=== PATIENT | male | born 1945 | race Caucasian/White ===

== ENCOUNTER → 2016-10-24 | Day surgery (SDC) | payer MEDICARE, BC ==
[~2016-10-24] MED LIST: ASPIRIN EC81 M1 PO; ASPIRIN PO; B-COMPLEX-VITA1 EACH PO; DYAZIDE 37.5/251 CAP PO; FISH OIL 1,2001 EAC1 PO; GLIPIZIDE10 MG PO; GLYNASE PO; LANTUS SOL100 UNIT/1 SUBQ; LASIX20 MG PO; LOPRESSOR PO; METFORMIN PO; NIACIN PO; NOVOLOG100 UNITS/ SUBQ; PLAVIX PO; VASOTEC PO; VICTOZA SUBD; VITAMIN B-121000 MCG PO; ZOCOR PO; [UNRECOGNIZED DRUG - REMARK]
--- NOTE | ~2016-10-24 | OR ---
Unit #: [id number] #: [id number] Patient: ZAIN DUNCAN SR [id number] [address] [id number] O MR#: [id number] NAME: ZIAN DUNCAN SR ROOM: Date of Procedure: 10/24/2016 Admission Date: 10/24/2016 Surgeon: Maximus Mishra M.D. : 1945 Attending Physician: Maximus Mishra M.D. Referring Physician: Maximus Mishra M.D. Primary Care Physician: Lias Cole M.D. OPERATIVE REPORT PREOPERATIVE DIAGNOSIS Screening colonoscopy. POSTOPERATIVE DIAGNOSIS Screening colonoscopy. PROCEDURES PERFORMED 1. Colonoscopy to cecum. 2. Polypectomy of small cecal polyp with cold biopsy forceps. ANESTHESIA Monitored anesthesia care. FINDINGS The patient was found to have a small 3 to 4 mm polyp that was excised completely with the cold biopsy forceps in the cecum with good hemostasis. Normal colonoscopy to cecum otherwise except for mild internal hemorrhoids. SPECIMENS Sent to pathology. COMPLICATIONS None apparent. CONDITION The patient tolerated the procedure well. INDICATIONS FOR PROCEDURE The patient is a 71-year-old white male, who presents at this time for screening colonoscopy. His last colonoscopy was 10 years ago. DESCRIPTION OF PROCEDURE After obtaining informed consent, the patient was brought to the endoscopy suite and after adequate monitored anesthesia care, had the colonoscope placed through the anus and slowly advanced to the level of the cecum without difficulty with the lumen always in view. The cecum was normal other than a small 3 to 4 mm polyp. It was completely excised with cold biopsy forceps with good hemostasis and sent to pathology. On pulling back from the area of the cecum, the cecum was normal other than a small polyp. The ascending colon was normal as was the hepatic flexure, transverse colon, splenic flexure, descending colon, sigmoid colon, and rectum. On retroflexing in the rectum to the anorectal junction, the Unit #: [id number] #: [id number] Patient: ZAIN DUNCAN SR patient was found to have some mild internal hemorrhoids. The scope was removed without difficulty. The patient tolerated the procedure well and went from the endoscopy suite to the recovery area in stable condition. RECOMMENDATIONS High-fiber diet, lots of liquids, tucks or wipes p.r.n. Call Saturday for pathology. Dictated by... Eugenia Sanders/dominique TD: 10/24/2016 23:41 JOB #: [id number] CC: [facility] OPERATIVE REPORT Page 1 of 1 X Maximus Mishra MD X PROCEDURE OPERATIVE NOTE
== END | disposition home or self-care (01) ==
LOC: COPS 10:42
DX: Z12.11 Encounter for screening for malignant neoplasm of colon (principal); D12.0 Benign neoplasm of cecum; K64.8 Other hemorrhoids; I10 Essential (primary) hypertension; I25.10 Atherosclerotic heart disease of native coronary artery without angina pectoris; E11.9 Type 2 diabetes mellitus without complications; M19.90 Unspecified osteoarthritis, unspecified site; Z86.73 Personal history of transient ischemic attack (TIA), and cerebral infarction without residual deficits; Z79.4 Long term (current) use of insulin; Z79.02 Long term (current) use of antithrombotics/antiplatelets; Z79.82 Long term (current) use of aspirin; Z79.899 Other long term (current) drug therapy; Z90.49 Acquired absence of other specified parts of digestive tract
CPT/HCPCS: 82947; 88305; J2250

== ENCOUNTER → 2016-12-17 | Outpatient (CLI) | payer MEDICARE, BC ==
--- NOTE | ~2016-12-17 | US77 ---
[facility] A Service of [facility] & [facility] RADIOLOGY TEXT RESULTS PATIENT: ZAIN DUNCAN SR LOCATION: [facility] : [birth year] UNIT #: [id number] AGE: [address]: Zain Zendejas MD SEX: M ORDER DR: [id number] [address] [address] [id number] O MR#: [id number] Acc #: [id number] NAME: ZAIN DUNCAN : 1945 SEX: M STUDY DATE/TIME: 12/17/2016 10:47 UNIT: [facility] ROOM: STUDY DESCRIPTION: US Kidney Bilateral Complete Attending Physician: Zain Zendejas M.D. Referring Physician: Zain Zendejas M.D. Ordering Physician: Zain Zendejas M.D. Primary Care Physician: Lisa Cole M.D. MEDICAL IMAGING REPORT This report is preliminary unless electronic signature is present. EXAM Renal ultrasound, 12/17/2016 HISTORY Chronic kidney disease stage 3, followup. FINDINGS The right kidney measured 10.4 cm while the left kidney measured 10.3 cm in longitudinal dimensions. There is no evidence of hydronephrosis or nephrolithiasis. No cystic or solid mass lesions were seen on either kidney. There is normal renal cortical echogenicity. Images of the bladder are normal. IMPRESSION 1. Negative renal ultrasound. 2. Images of the bladder are normal. Dictated by... Alfie Nguyễn M.D. THIS IS AN ELECTRONICALLY VERIFIED REPORT Alfie Nguyễn M.D. at 12/18/2016 9:56 AM SAGAR/kristi TD: 12/17/2016 13:53 JOB #: [id number] MEDICAL IMAGING REPORT Page 1 of 1
== END | disposition home or self-care (01) ==
LOC: SGUS 10:33
DX: N18.3 Chronic kidney disease, stage 3 (moderate) (principal)
CPT/HCPCS: 76775

== ENCOUNTER → 2016-12-27 | Outpatient (CLI) | payer MEDICARE, BC ==
[2016-12-27 09:21] LABS: BASOPHIL# 0.1 X10e3 (0-0.3); BASOPHIL% 1.3 % (0-2.5); EOSINOPHIL# 0.2 X10e3 (0-0.7); EOSINOPHIL% 3.1 % (0.0-7.0); HEMATOCRIT 41.8 % (38.0-50.0); HEMOGLOBIN 14.5 gm/dL (13.0-16.0); LYMPHOCYTE# 1.3 X10e3 (1.0-3.5); LYMPHOCYTE% 16.8 % (17.0-45.0); MEAN CELL VOLUME 85.9 FL (83-96); MEAN CORPUSCULAR HEMOGLOBIN 29.9 PG (28-34); MEAN CORPUSCULAR HGB CONC 34.8 g/dL (30-36); MONOCYTE# 0.8 X10e3 (0-1.0); MONOCYTE% 9.8 % (3.0-12.0); NEUTROPHIL# 5.5 X10e3 (1.5-7.1); PLATELET COUNT 194 X10e3 (140-420); RED BLOOD COUNT 4.86 X10e (3.90-5.60)
[2016-12-27 09:24] LABS: DIFF IND NO
[2016-12-27 09:28] LABS: URINE APPEARANCE CLEAR; URINE BILIRUBIN NEG (NEG); URINE BLOOD NEG (NEG); URINE COLOR YELLOW; URINE GLUCOSE NEG (NORM); URINE KETONE NEG (NEG); URINE LEUKOCYTE ESTERASE NEG (NEG); URINE NITRATE NEG (NEG); URINE PH 5.5 (5-8); URINE PROTEIN NEG (NEG); URINE UROBILINOGEN 0.2 MG/DL (NORM)
[2016-12-27 09:30] LABS: MICRO INDICATED? NO
[2016-12-27 09:41] LABS: BUN/CREATININE RATIO 16.66; CALCIUM SERUM 9.2 mg/dL (8.4-10.2); CREATININE SERUM 1.2 mg/dL (0.6-1.4); GLOM FILT RATE Estimated 61.3 mL/min (>60); POTASSIUM 4.1 mmol/L (3.5-5.1)
== END | disposition home or self-care (01) ==
LOC: SLAB 09:01
PROVIDERS: Internal Medicine Nephrology
DX: N18.3 Chronic kidney disease, stage 3 (moderate) (principal); E55.9 Vitamin D deficiency, unspecified
CPT/HCPCS: 36415; 80048; 81003; 82306; 85025